=== PATIENT | female | born 1945 | race Caucasian/White ===

== ENCOUNTER → 2016-07-15 | Outpatient (CLI) | payer MEDICARE, OTHER ==
[~2016-07-15] MED LIST: CA C1TAB98 PO CHEW; DORZ10DR15 BOTH EYES; FISH1CAP2 PO; FOLI-75 PO; LATA2.5D7 BOTH EYES; LUTE20TA PO; VIT1CAPS21 PO
[2016-07-15 10:51] LABS: BASOPHILS % (AUTO) 0.7 % (0-2); EOSINOPHILS # (AUTO) 0.3 T/MM3 (0-0.5); EOSINOPHILS % (AUTO) 7.4 % (0-4); HGB - HEMOGLOBIN 12.6 GM/DL (12-16); LYMPHOCYTES # (AUTO) 1.5 T/MM3 (1-4.8); LYMPHOCYTES % (AUTO) 36.3 % (23-45); MEAN CORPUSCULAR HGB 27.2 UUG (26-34); MEAN CORPUSCULAR HGB CONC(MCHC 32.3 GM/DL (31-37); MEAN CORPUSCULAR VOLUME 84.2 UM3 (80-100); MONOCYTES # (AUTO) 0.4 T/MM3 (0-0.8); MONOCYTES % (AUTO) 8.6 % (0-9.0); NEUTROPHILS #(AUTO)-ABSOLUTE 1.9 T/MM3 (1.8-7.7); RED BLOOD COUNT 4.63 M/MM3 (4.00-5.20); WBC - WHITE BLOOD COUNT 4.1 T/MM3 (4.5-11.0)
[2016-07-15 11:00] LABS: ALBUMIN 4.2 G/DL (3.5-5.0); ALBUMIN/GLOBULIN RATIO 1.2 RATIO (1.1-2.2); ALKALINE PHOSPHATASE 99 U/L (38-126); ALT (SGPT) 41 U/L (9-52); ANION GAP 9 MEQ/L (5-15); AST (SGOT) 20 U/L (14-36); BUN/CREATININE RATIO 20 RATIO (6-26); CALCIUM 9.5 MG/DL (8.4-10.2); CHLORIDE 107 MEQ/L (98-107); CO2 - CARBON DIOXIDE 31 MEQ/L (22-30); CREATININE 0.8 MG/DL (0.7-1.2); GLOMERULAR FILTRATION RATE 71; GLUCOSE 78 MG/DL (65-110); SODIUM 147 MEQ/L (134-144); TOTAL PROTEIN 7.8 G/DL (6.3-8.2)
== END ==
LOC: LAB 10:32
PROVIDERS: ATTEND Internal Medicine Medical Oncology
DX: D68.59 Other primary thrombophilia (principal)
CPT/HCPCS: 36415; 80053; 85025